=== PATIENT | female | born 1960 | race Caucasian/White ===

== ENCOUNTER 2018-04-20 09:02 | Emergency (ER) | payer MEDICAID, OTHER ==
[2018-04-20] MEDS: predniSONE 20 MG TAB PO (09:51)
[2018-04-20] MEDS: KETOROLAC 30 MG INJ IM (09:51)
[2018-04-20 09:57] LABS: ADD UMIC YES; UR ASCORBIC ACID NEGATIVE (NEGATIVE); UR BILIRUBIN (Dip) NEGATIVE (NEGATIVE); UR BLOOD (Dip) NEGATIVE (NEGATIVE); UR CLARITY CLEAR (CLEAR); UR COLOR YELLOW (YELLOW); UR GLUCOSE (Dip) NEGATIVE (NEGATIVE); UR KETONES (Dip) NEGATIVE (NEGATIVE); UR LEUKOCYTE ESTERASE (Dip) TRACE Leu/ul (NEGATIVE); UR MUCUS FEW /HPF (NONE SEEN); UR NITRITE (Dip) NEGATIVE (NEGATIVE); UR RBC 0 /HPF (0-5); UR SPECIFIC GRAVITY (Dip) 1.015 (1.003-1.030); UR TOTAL PROTEIN (Dip) NEGATIVE (NEGATIVE); UR UROBILINOGEN (Dip) NEGATIVE (NEGATIVE); UR WBC 1 /HPF (0-5)
== END 2018-04-20 11:07 | disposition home or self-care (01) ==
LOC: FTE 09:02
DX: M54.41 Lumbago with sciatica, right side (principal); M25.512 Pain in left shoulder; I10 Essential (primary) hypertension
CPT/HCPCS: 72100; 73510; 81001; 96372; 99284-25

== ENCOUNTER 2019-05-22 09:15 | Emergency (ER) | payer OTHER, MEDICAID ==
[2019-05-22] MEDS: KETOROLAC 30 MG INJ IM (10:20)
== END 2019-05-22 10:58 | disposition home or self-care (01) ==
LOC: FTE 09:15
DX: M54.5 Low back pain (principal); I10 Essential (primary) hypertension
CPT/HCPCS: 96372; 99284-25